=== PATIENT | female | born 1940 | race Caucasian/White ===

== ENCOUNTER 2021-03-01 15:47 | Emergency (ER) | payer MEDICARE ==
[~2021-03-01] VITALS: Ht 162.6 cm; Wt 63.6 kg
--- NOTE | 2021-03-01 16:39 | NUR ---
CONSERVATOR: AMPARO CALLED AND LEFT NUMBER [phone]
[2021-03-01 16:51] LABS: BASOPHILS % (AUTO) 0.3 % (0-1); EOSINOPHILS # (AUTO) 0.1 X10'3 (0-0.9); EOSINOPHILS % (AUTO) 2.2 % (0-6); HEMATOCRIT 42.4 % (35.0-45.0); HEMOGLOBIN 14.1 g/dl (12.0-16.0); LYMPHOCYTES % (AUTO) 18.5 % (21-51); MEAN CORPUSCULAR HGB CONC 33.2 g/dL (33.0-36.5); MEAN CORPUSCULAR VOLUME 90.4 FL (78-98); MEAN PLATELET VOLUME 8.6 FL (7.4-10.4); MONOCYTES # (AUTO) 0.4 X10'3 (0-0.9); MONOCYTES % (AUTO) 8.2 % (2-12); NEUTROPHILS # (AUTO) 3.8 X10'3 (1.8-7.7); NEUTROPHILS % (AUTO) 70.8 % (42-75); PLATELET COUNT 182 X10'3 (140-440); RED BLOOD COUNT 4.69 X10'6 (4.20-5.60); RED CELL DISTRIBUTION WIDTH 16.7 % (11.5-14.5); WHITE BLOOD COUNT 5.3 X10'3 (4.5-11.0)
[2021-03-01 17:00] LABS: PARTIAL THROMBOPLASTIN TIME 27 SECONDS (22-32)
[2021-03-01 17:04] LABS: ALANINE AMINOTRANSFERASE 16 U/L (12-78); ALBUMIN 2.9 G/DL (3.4-5.0); ALBUMIN/GLOBULIN RATIO 0.7 (1.1-1.5); ALKALINE PHOSPHATASE 129 IU/L (46-116); ANION GAP 11 (8-16); ASPARTATE AMINO TRANSFERASE 18 U/L (10-37); BILIRUBIN,TOTAL 0.3 MG/DL (0.1-1.0); BLOOD UREA NITROGEN 25 MG/DL (7-18); CALCIUM 9.2 MG/DL (8.5-10.1); CHLORIDE 109 MMOL/L (99-107); GLUCOSE 90 MG/DL (70-104); SODIUM 144 MMOL/L (135-145); TOTAL CARBON DIOXIDE 24.2 MMOL/L (24-32); eGFR 53 ML/MIN
[2021-03-01] MEDS ORDERED: iohexol 350MG/ML 100ml bottle IV ONE (17:11)
--- NOTE | 2021-03-01 21:28 | NUR ---
Spoke to Smita the traditional [facility]ori health practitioner contact with [facility]. [facility] is working on placement for the Pt., cannot pick pt. up [place], pt. does not have family to be discharged home with, [facility] will call back in morning with update.
--- NOTE | 2021-03-02 09:14 | NUR ---
Spoke to [facility] public guardian, Kevin Whyte, regarding patients current medical records. He requested that he receive notes on patients current care to be faxed to [phone]. I faxed medical records. Kevin stated that he would be discussing patients case with another administrator social welfare in the office and arrange for transportation/ placement for patient. He stated that he would be getting back to me as soon as possible.
[2021-03-02 12:00] VITALS: BP 151/90
--- NOTE | 2021-03-02 13:21 | NUR ---
Called Henrry regarding plan for patients furthering of care. Henrry stated that he would speak with Raquel lopez regarding her case. There were talks about sending [facility] to transport patient. Stated he would call back in a half hour with plan.
--- NOTE | 2021-03-02 14:00 | NUR ---
Called gavin he was not in the office, left a voice mail message. Called a spoke with terrazzo polisher asked for outreach and education social worker, mrs lopez, States she was also out of the office. Will call back to get update on patients transfer status.
--- NOTE | 2021-03-02 14:34 | NUR ---
Raquel Funk called regarding patients transfer status. She stated that she has been in contact with Grecia a rn social services at [facility], who is potentially working on a "swing bed" for the patient. Raquel stated that she would call Grecia and then review plan of transport with me when she knew.
--- NOTE | 2021-03-02 14:44 | NUR ---
I requested that Dr. Diaz try to contact Dr. England from ER at [facility] and see if he would be willing to accept patient. Dr. England agreed to accept patient as an ER to ER transfer. Grecia, Roll Reclaimer at [facility], called stating that she was awaiting MD approval for transfer. I notified her of the above and stated that we would arrange for transportation from our end.
--- NOTE | 2021-03-02 15:08 | NUR ---
Report given to GAMA Reyes to transport
== END 2021-03-02 15:17 | disposition home or self-care (01) ==
LOC: ER 15:47
DX: N28.9 Disorder of kidney and ureter, unspecified (principal); Z89.519 Acquired absence of unspecified leg below knee; I73.9 Peripheral vascular disease, unspecified
CPT/HCPCS: 36415; 71045; 73706; 80053; 84484; 85025; 85610; 85730; 93005; 93926; 99285; Q9967